=== PATIENT | female | born 1985 ===

== ENCOUNTER 2017-07-18 18:51 | Emergency (ER) | payer OTHER ==
[2017-07-18 19:30] VITALS: BP 163/92; PULSE 73; RESP 16; TEMP 98.9; O2SAT 100
--- NOTE | 2017-07-18 19:59 | ED PDOC ---
HPI: Back Time Seen by Provider: 07/18/17 19:33 Chief Complaint (Nursing): Back Pain Chief Complaint (Provider): left flank pain History Per: Patient History/Exam Limitations: no limitations Onset/Duration Of Symptoms: Days (4) Current Symptoms Are (Timing): Still Present Quality Of Discomfort: Dull, Aching Previous Symptoms: None Associated Symptoms: None Additional Complaint(s): 32yo F in ED for eval of of left flank pain x 4days with dull achy pain no hx of acute injury no hematuira no dysuria no suprapubic pain no fever no chill no nausea no vomiting. Past Medical History Reviewed: Historical Data, Nursing Documentation, Vital Signs Vital Signs: Last Vital Signs Temp 98.9 F 07/18/17 19:27 Pulse 73 07/18/17 19:27 Resp 16 07/18/17 19:27 BP 163/92 H 07/18/17 19:27 Pulse Ox 100 07/18/17 19:27 - Medical History PMH: Anxiety, Asthma, Gastritis - Family History Family History: States: No Known Family Hx - Home Medications Home Medications: Ambulatory Orders Medication Instructions Recorded Acetaminophen/Butalbital/Caf 1 tab PO TID PRN #20 tab 01/01/17 [Fioricet] Epinephrine HCl [Epipen 0.3 mg IM ONCE PRN #0.3 ml 01/01/17 Auto-Injector] Ciprofloxacin [Cipro] 250 mg PO BID #14 tab 07/18/17 Ketorolac Tromethamine [Toradol] 10 mg PO TID #20 cap 07/18/17 Tamsulosin HCl [Flomax] 0.4 mg PO DAILY #12 cap.er.24h 07/18/17 - Allergies Allergies/Adverse Reactions: Allergies Allergy/AdvReac Type Severity Reaction Status Date / Time hydrocodone bitartrate Allergy SHORTNESS Verified 07/18/17 19:27 [From Vicodin] OF BREATH Review of Systems ROS Statement: Except As Marked, All Systems Reviewed And Found Negative Gastrointestinal: Negative for: Nausea, Vomiting, Abdominal Pain Musculoskeletal: Positive for: Back Pain Physical Exam - Reviewed Nursing Documentation Reviewed: Yes Vital Signs Reviewed: Yes - Physical Exam Appears: Positive for: Well, Non-toxic, No Acute Distress Skin: Positive for: Normal Color, Warm, DRY Cardiovascular/Chest: Positive for: Regular Rate, Rhythm Respiratory: Positive for: CNT, Normal Breath Sounds Gastrointestinal/Abdominal: Positive for: Normal Exam, Bowel Sounds, Soft. Negative for: Tenderness Back: Positive for: L CVA Tenderness. Negative for: R CVA Tenderness Extremity: Positive for: Normal ROM Neurologic/Psych: Positive for: Alert, Oriented - ECG O2 Sat by Pulse Oximetry: 100 - Progress ED Course And Treament: impression: flank pain r/o renal stone, CT of abd, NS, torroodl and UA Medical Decision Making Medical Decision Making: AT THIS TIME PT OPTS TO LEAVE er AND BE CALLED BACK WITH TEST RESULTS. PT WILL BE GIVEN cipro/flomax and tordol for pain to take if (+) with renal stone. pt understands to f.u with pmd. Disposition - Clinical Impression Clinical Impression: Back pain, Hematuria - Patient ED Disposition Is Patient to be Admitted: No Counseled Patient/Family Regarding: Diagnosis, Need For Followup, Rx Given - Disposition Disposition: Routine/Home Disposition Time: 22:39 Condition: STABLE Prescriptions: Ciprofloxacin [Cipro] 250 mg PO BID #14 tab Ketorolac Tromethamine [Toradol] 10 mg PO TID #20 cap Tamsulosin HCl [Flomax] 0.4 mg PO DAILY #12 cap.er.24h Instructions: Kidney Stones (ED), Renal Colic (ED) Forms: [employer] (Thai)
[2017-07-18] MEDS: Sodium Chloride 0.9% 1,000 ML IV STA (20:28)
[2017-07-18 20:45] LABS: URINE BILIRUBIN NEGATIVE (NEGATIVE); URINE BLOOD SMALL (NEGATIVE); URINE COLOR STRAW (YELLOW); URINE GLUCOSE (UA) NEG (Normal); URINE KETONE TRACE mg/dL (NEGATIVE); URINE LEUKOCYTE ESTERASE NEG Leu/uL (Negative); URINE PROTEIN NEGATIVE (NEGATIVE); URINE UROBILINOGEN 0.2-1.0 mg/dL (0.2-1.0)
[2017-07-18 20:51] LABS: RBC URINE 11 /hpf (0-3); WBC URINE 3 /hpf (0-5)
--- NOTE | 2017-07-19 08:39 | CT ---
PROCEDURE: CT Abdomen and Pelvis without intravenous contrast HISTORY: left flank COMPARISON: None. TECHNIQUE: Unenhanced study. Neither oral nor intravenous contrast administered. Radiation dose: Total exam DLP = 381.26 mGy-cm. This CT exam was performed using one or more of the following dose reduction techniques: Automated exposure control, adjustment of the mA and/or kV according to patient size, and/or use of iterative reconstruction technique. FINDINGS: LOWER THORAX: Unremarkable. LIVER: Unremarkable. No gross lesion or ductal dilatation. GALLBLADDER AND BILE DUCTS: Unremarkable. PANCREAS: Unremarkable. No gross lesion or ductal dilatation. SPLEEN: Unremarkable. ADRENALS: Unremarkable. No mass. KIDNEYS AND URETERS: Unremarkable. No hydronephrosis. No solid mass. VASCULATURE: Unremarkable. No aortic aneurysm. BOWEL: Unremarkable. No obstruction. No gross mural thickening. APPENDIX: Unremarkable. Normal appendix. PERITONEUM: Unremarkable. No free fluid. No free air. LYMPH NODES: Unremarkable. No enlarged lymph nodes. BLADDER: Unremarkable. REPRODUCTIVE: Unremarkable. BONES: No acute fracture. OTHER FINDINGS: None. IMPRESSION: No significant or acute findings to account for/ related to the clinical presentation. Concordant results (preliminary interpretation) provided by [facility]. Procedure Completed: 22:21. Preliminary ([facility]) Report: Dictated and Authenticated: 22:57. Final Interpretation: 08:37. July 19, 2017.
== END 2017-07-18 22:50 | disposition home or self-care (01) ==
LOC: H.ER 18:51
DX: N20.0 Calculus of kidney (principal); F41.9 Anxiety disorder, unspecified
CPT/HCPCS: 74176; 81003; 81025; 96361; 96374; 99282; J1885; J7040